=== PATIENT | male | born 1990 | race Two or more races ===

== ENCOUNTER → 2022-02-03 | Outpatient (CLI) | payer OTHER ==
[~2022-02-03] MED LIST: ARIPiprazole 15 MG TABLET PO SCH; BENZTROPINE MESYLATE 1 MG TABLET PO ONE; BENZTROPINE MESYLATE 1 MG TABLET PO SCH; DIVALPROEX SODIUM 500 MG ER TABLET PO ONE; DIVALPROEX SODIUM 500 MG ER TABLET PO SCH; QUEtiapine FUMARATE 25 MG TABLET PO ONE; QUEtiapine FUMARATE 25 MG TABLET PO SCH
== END | disposition home or self-care (01) ==
LOC: CSU 18:00
PROVIDERS: ATTEND Psychiatry & Neurology Psychiatry
DX: F31.9 Bipolar disorder, unspecified (principal); F15.20 Other stimulant dependence, uncomplicated; F12.20 Cannabis dependence, uncomplicated; F11.20 Opioid dependence, uncomplicated; F10.20 Alcohol dependence, uncomplicated
CPT/HCPCS: 90792; Z7610